=== PATIENT | male | born 1995 | race Caucasian/White ===

== ENCOUNTER → 2017-08-09 | Day surgery (SDC) | payer OTHER ==
[~2017-08-09] MED LIST: ALLEGRA PO
--- NOTE | ~2017-08-09 | OR ---
Unit #: [id number] #: [id number] Patient: JAYLYN OGLESBY [id number] [address] [address] [id number] MR#: [id number] NAME: JAYLYN OGLESBY ROOM: Date of Procedure: 08/09/2017 Admission Date: 08/09/2017 Surgeon: Abdirahman Pierre M.D. : 1995 Attending Physician: Abdirahman Pierre M.D. Primary Care Physician: Adrian Millan M.D. OPERATIVE REPORT PREOPERATIVE DIAGNOSIS Pilonidal cyst. POSTOPERATIVE DIAGNOSIS Pilonidal cyst. PROCEDURE PERFORMED Excision of pilonidal cyst. ANESTHESIA General endotracheal anesthesia with 0.5% Marcaine plain local anesthesia. FINDINGS The area was excised and sent to pathology. The incision were closed with a layered closure. SPECIMENS Sent to pathology. COMPLICATIONS None apparent. CONDITION The patient tolerated the procedure well. INDICATIONS FOR PROCEDURE The patient is a 21-year-old white male, who presents at this time with a chronically inflamed pilonidal cyst. He presents at this time for excision for pathologic diagnosis and treatment. DESCRIPTION OF PROCEDURE After obtaining informed consent as well as receiving preoperative antibiotics and knee-high SCDs, the patient was brought to the operating room and after adequate general endotracheal anesthesia was obtained on the gurney, was carefully placed into the prone position with all extremities manipulated very carefully and all pressure points carefully padded. His buttocks were taped apart. His intergluteal crease and perineum were prepped and draped in a sterile fashion. An incision was made elliptically around the area of the midline and the chronically inflamed pilonidal cyst. The incision was taken down through the skin and through the subdermal tissues with the knife and then through the subcutaneous tissues down to the level of the sacral fascia with Unit #: [id number] #: [id number] Patient: JAYLYN OGLESBY electrocautery. The area was excised completely with good hemostasis and sent to pathology. The wound was copiously irrigated. All irrigation was evacuated. A #1 Prolene suture was used to go down through the full-thickness of the skin and subcutaneous tissues taking a bite of the base of the wound and come out the other side and was cut and tagged. The tape was released. The subcutaneous tissues were reapproximated with interrupted 3-0 Vicryl sutures in 2 layers. The skin was closed with interrupted 3-0 nylon vertical mattress sutures. A strip of Xeroform gauze was placed over the incision followed by a rolled-up sterile gauze with the Prolene were then tied over to hold in place. It was snug, but not tight. Dry dressing was applied over the top with foam tape. Needle counts, sponge counts, and instrument counts were all correct as reported by the scrub nurse x2. The patient went from the operating room to the recovery room in stable condition. Dictated by... Ziyad Crockett/modl TD: 08/09/2017 16:03 JOB #: [id number] CC: [facility] Adrian Millan M.D. OPERATIVE REPORT Page 1 of 1 X Abdirahman Pierre MD X PROCEDURE OPERATIVE NOTE
== END | disposition home or self-care (01) ==
LOC: CSUR 08:22
DX: L05.91 Pilonidal cyst without abscess (principal); Z79.899 Other long term (current) drug therapy
CPT/HCPCS: 88304; J0330; J0690; J1885; J2250; J2405; J3010